=== PATIENT | female | born 1970 | race Caucasian/White ===

== ENCOUNTER → 2018-01-01 | Outpatient (CLI) | payer BC | LOC: M RAD 08:14 | DX: H83.03 Labyrinthitis, bilateral (principal) | CPT/HCPCS: 70480 ==

== ENCOUNTER → 2020-03-23 | Outpatient (CLI) | payer BC ==
[2020-03-23 11:33] LABS: BLOOD UREA NITROGEN 14 MG/DL (7-18); CALCIUM LEVEL 9.4 MG/DL (8.5-10.1); CARBON DIOXIDE LEVEL 25 MEQ/L (21-32); CHLORIDE LEVEL 109 MEQ/L (98-107); CREATININE FOR GFR 0.98 MG/DL (0.55-1.30); GLOMERULAR FILTRATION RATE > 60.0 (>51); GLUCOSE, FASTING 112 MG/DL (70-100); SODIUM LEVEL 141 MEQ/L (136-145)
== END ==
LOC: M LAB 10:43
PROVIDERS: ATTEND Orthopaedic Surgery Hand Surgery
DX: Z79.899 Other long term (current) drug therapy (principal)

== ENCOUNTER → 2020-03-24 | Outpatient (CLI) | payer BC | LOC: M LABSMTC 10:12 | PROVIDERS: ATTEND Orthopaedic Surgery Hand Surgery | DX: Z03.818 Encounter for observation for suspected exposure to other biological agents ruled out (principal) ==

== ENCOUNTER → 2020-05-22 | Outpatient (CLI) | payer BC ==
[2020-07-22 06:37] LABS: CALCIUM LEVEL 9.3 MG/DL (8.5-10.1); CREATININE FOR GFR 1.04 MG/DL (0.55-1.30); GLOMERULAR FILTRATION RATE 59.7 (>51); POTASSIUM SERUM 3.8 MEQ/L (3.5-5.1)
== END ==
LOC: M LAB 08:13
PROVIDERS: ATTEND Orthopaedic Surgery
DX: Z01.818 Encounter for other preprocedural examination (principal)

== ENCOUNTER → 2020-06-02 | Outpatient (CLI) | payer BC | LOC: M LABSMTC 08:20 | PROVIDERS: ATTEND Orthopaedic Surgery | DX: Z20.828 Contact with and (suspected) exposure to other viral communicable diseases (principal) ==

== ENCOUNTER → 2020-07-20 | Outpatient (CLI) | payer BC ==
[~2020-07-20] MED LIST: PROHANCE 279.3MG/ML 15ML VIAL As Ordered ONE; PROHANCE 279.3MG/ML 5ML VIAL As Ordered ONE
--- NOTE | 2020-07-25 11:24 | REP ---
BILATERAL BREAST MRI WITH AND WITHOUT CONTRAST HISTORY: Bilateral nipple discharge. COMPARISON: Mammography 04/04/2020. TECHNIQUE: Multiple sequences are obtained in the axial, coronal, and sagittal planes prior to and following the intravenous administration of 16 mL ProHance. Images are evaluated in the [employer] software, including dynamic post intravenous (IV) gadolinium axial T1 fat sat images, subtraction images, color overlay images, CAD images, and MIP reconstruction images. FINDINGS: There is moderate fibroglandular tissue bilaterally, which is fairly symmetrical. No significant cystic change is seen. There are bilateral axillary lymph nodes, which do not appear to be significantly enlarged and all demonstrate a fatty hilum, morphologically unremarkable. There is mild background parenchymal enhancement bilaterally. No suspicious enhancing mass or morphologic abnormality is seen bilaterally. IMPRESSION: BI-RADS Category 1 negative bilateral breast MRI. No suspicious enhancing mass or morphologic abnormality. MTDD
== END ==
LOC: M RAD 11:41
PROVIDERS: ATTEND Surgery
DX: N64.52 Nipple discharge (principal)
CPT/HCPCS: A9576; C8908

== ENCOUNTER → 2022-01-16 | Outpatient (CLI) | payer BC | LOC: M WHC 10:21 | PROVIDERS: ATTEND Obstetrics & Gynecology | DX: Z12.31 Encounter for screening mammogram for malignant neoplasm of breast (principal) ==

== ENCOUNTER → 2022-01-23 | Outpatient (CLI) | payer BC | LOC: M WHC 08:45 | PROVIDERS: ATTEND Obstetrics & Gynecology | DX: Z12.31 Encounter for screening mammogram for malignant neoplasm of breast (principal) ==

== ENCOUNTER → 2023-04-15 | Outpatient (CLI) | payer BC | LOC: M WHC 08:31 | PROVIDERS: ATTEND Nurse Practitioner Family | DX: Z12.31 Encounter for screening mammogram for malignant neoplasm of breast (principal) ==

== ENCOUNTER → 2023-04-15 | Outpatient (REF) | payer BC | LOC: M SFHCWAGY 13:01 | PROVIDERS: ATTEND Nurse Practitioner Family | DX: Z12.4 Encounter for screening for malignant neoplasm of cervix (principal) ==

== ENCOUNTER → 2024-04-20 | Outpatient (CLI) | payer OTHER | LOC: M WHC 09:10 | PROVIDERS: ATTEND Nurse Practitioner Family | DX: Z12.31 Encounter for screening mammogram for malignant neoplasm of breast (principal) ==

== ENCOUNTER → 2025-05-01 | Outpatient (CLI) | payer OTHER | LOC: M WHC 08:20 | PROVIDERS: ATTEND Nurse Practitioner Family | DX: Z12.31 Encounter for screening mammogram for malignant neoplasm of breast (principal); R92.323 Mammographic fibroglandular density, bilateral breasts ==

== ENCOUNTER → 2025-05-01 | Outpatient (REF) | payer OTHER ==
[2025-05-03 15:38] LABS: HPV APTIMA Detected (Not Detected)
== END ==
LOC: M SFHCWAGY 12:59
PROVIDERS: ATTEND Nurse Practitioner Family
DX: Z12.4 Encounter for screening for malignant neoplasm of cervix (principal); Z01.419 Encounter for gynecological examination (general) (routine) without abnormal findings; Z77.9 Other contact with and (suspected) exposures hazardous to health; Z11.51 Encounter for screening for human papillomavirus (HPV)